=== PATIENT | male | born 1995 | race African-American/Black ===

== ENCOUNTER 2017-12-19 07:50 | Emergency (ER) | payer OTHER ==
[~2017-12-19] VITALS: Ht 188 cm; Wt 113.4 kg
[2017-12-19 08:06] VITALS: BP 154/87
[2017-12-19] MEDS ORDERED: Morphine Sulfate 4mg/ml Inj IVP ONE (08:15)
[2017-12-19 08:45] LABS: HEMATOCRIT 49.9 % (42.0-52.0); HEMOGLOBIN 17.1 G/DL (14.2-18.0); MEAN CORPUSCULAR VOLUME 86 FL (80-99); PLATELET COUNT 258 K/UL (150-450); RED BLOOD COUNT 5.78 M/UL (4.70-6.10); RED CELL DISTRIBUTION WIDTH 11.4 % (11.6-14.8); WHITE BLOOD COUNT 9.8 K/UL (4.8-10.8)
[2017-12-19 09:03] LABS: ANION GAP 7 mmol/L (5-15); BLOOD UREA NITROGEN 11 mg/dL (7-18); CALCIUM 10.9 MG/DL (8.5-10.1); CARBON DIOXIDE 31 MMOL/L (21-32); CHLORIDE 99 MMOL/L (98-107); CREATININE 1.1 MG/DL (0.55-1.30); POTASSIUM 3.7 MMOL/L (3.5-5.1); SODIUM 137 MMOL/L (136-145)
[2017-12-19 09:07] LABS: ALANINE AMINOTRANSFERASE 45 U/L (12-78); ALBUMIN 5.4 G/DL (3.4-5.0); ALBUMIN/GLOBULIN RATIO 1.4 (1.0-2.7); ALKALINE PHOSPHATASE 42 U/L (46-116); ASPARTATE AMINO TRANSFERASE 33 U/L (15-37); BILIRUBIN,TOTAL 0.6 MG/DL (0.2-1.0)
--- NOTE | 2017-12-19 09:21 | Emergency Room Report ---
History of Present Illness General Chief Complaint: Abdominal Pain Source: Patient Present Illness HPI 22-year-old male presents ED for evaluation. Patient presented with abdominal pain and nausea and vomiting. Started last night. Ate seafood for dinner. Pain is epigastric, sharp, 8 out of 10, nonradiating. He notes multiple episodes of nausea and vomiting. Denies any diarrhea. Denies any fevers or chills. Denies chest pain or shortness of breath. Denies sick contacts or travel. No other aggravating or relieving factors. Denies any other associated symptoms Allergies: Coded Allergies: No Known Allergies (Unverified , 12/19/17) Patient History Past Medical History: none Past Surgical History: none Pertinent Family History: none Social History: Denies: smoking, alcohol use, drug use Immunizations: UTD Reviewed Nursing Documentation: PMH: Agreed, PSxH: Agreed Nursing Documentation-PMH Past Medical History: No Stated History Review of Systems All Other Systems: negative except mentioned in HPI Physical Exam Vital Signs Date Time Temp Pulse Resp B/P (MAP) Pulse Ox O2 Delivery O2 Flow Rate FiO2 12/19/17 07:59 98.0 78 18 154/87 95 Room Air 98.1 Sp02 EP Interpretation: reviewed, normal General Appearance: no apparent distress, alert, GCS 15, non-toxic Head: normocephalic, atraumatic Eyes: bilateral eye normal inspection, bilateral eye PERRL ENT: hearing grossly normal, normal pharynx, no angioedema, normal voice Neck: full range of motion, supple/symm/no masses Respiratory: chest non-tender, lungs clear, normal breath sounds, speaking full sentences Cardiovascular #1: regular rate, rhythm, no edema Cardiovascular #2: 2+ carotid (R), 2+ carotid (L), 2+ radial (R), 2+ radial (L) , 2+ dorsalis pedis (R), 2+ dorsalis pedis (L) Gastrointestinal: normal bowel sounds, soft, non-distended, no guarding, no rebound, tenderness Rectal: deferred Genitourinary: normal inspection, no CVA tenderness Musculoskeletal: back normal, gait/station normal, normal range of motion, non- tender Neurologic: alert, oriented x3, responsive, motor strength/tone normal, sensory intact, speech normal Psychiatric: judgement/insight normal, memory normal, mood/affect normal, no suicidal/homicidal ideation Reflexes: 3+ bicep (R), 3+ bicep (L), 3+ tricep (R), 3+ tricep (L), 3+ knee (R) , 3+ knee (L) Skin: normal color, no rash, warm/dry, well hydrated Lymphatic: no adenopathy Medical Decision Making Diagnostic Impression: Primary Impression: Gastritis Qualified Codes: K29.00 - Acute gastritis without bleeding ER Course Hospital Course 22-year-old M presents to ED with epigastric pain with N/V. differential diagnosis: gastritis, SBO, cholecystits Clinical course Patient placed on stretcher. On cardiac care nurse. After initial history and physical I ordered labs, IV fluids, Zofran and pepcpid Labs - no leukocytosis, no electrolyte abnormalities, LFTs normal, UA unremarkable Upon reassessment, patient states pain has improved. findings consistent with gastritis. Discussed findings with patient I feel this is a highly complex case requiring extensive working including EKG/ Rhythm strip, Xray/CT/US, Blood/urine lab work, repeat exams while in ED, and administration of strong opiates/narcotics for pain control, admission to hospital or close patient follow up. Diagnosis - gastritis Stable and discharged to home with prescriptions for Zantac, zofran, bentyl. Followup with PMD. Return to ED if symptoms recur or worsen Labs Test 12/19/17 08:33 White Blood Count 9.8 K/UL (4.8-10.8) Red Blood Count 5.78 M/UL (4.70-6.10) Hemoglobin 17.1 G/DL (14.2-18.0) Hematocrit 49.9 % (42.0-52.0) Mean Corpuscular Volume 86 FL (80-99) Mean Corpuscular Hemoglobin 29.6 PG (27.0-31.0) Mean Corpuscular Hemoglobin Concent 34.4 G/DL (32.0-36.0) Red Cell Distribution Width 11.4 % (11.6-14.8) Platelet Count 258 K/UL (150-450) Mean Platelet Volume 8.3 FL (6.5-10.1) Neutrophils (%) (Auto) % (45.0-75.0) Lymphocytes (%) (Auto) % (20.0-45.0) Monocytes (%) (Auto) % (1.0-10.0) Eosinophils (%) (Auto) % (0.0-3.0) Basophils (%) (Auto) % (0.0-2.0) Differential Total Cells Counted 100 Neutrophils % (Manual) 85 % (45-75) Lymphocytes % (Manual) 11 % (20-45) Monocytes % (Manual) 4 % (1-10) Eosinophils % (Manual) 0 % (0-3) Basophils % (Manual) 0 % (0-2) Band Neutrophils 0 % (0-8) Platelet Estimate Adequate Platelet Morphology Normal Red Blood Cell Morphology Normal Sodium Level 137 MMOL/L (136-145) Potassium Level 3.7 MMOL/L (3.5-5.1) Chloride Level 99 MMOL/L (98-107) Carbon Dioxide Level 31 MMOL/L (21-32) Anion Gap 7 mmol/L (5-15) Blood Urea Nitrogen 11 mg/dL (7-18) Creatinine 1.1 MG/DL (0.55-1.30) Estimat Glomerular Filtration Rate > 60 mL/min (>60) Glucose Level 149 MG/DL (74-106) Calcium Level 10.9 MG/DL (8.5-10.1) Total Bilirubin 0.6 MG/DL (0.2-1.0) Aspartate Amino Transf (AST/SGOT) 33 U/L (15-37) Alanine Aminotransferase (ALT/SGPT) 45 U/L (12-78) Alkaline Phosphatase 42 U/L (46-116) Total Protein 9.4 G/DL (6.4-8.2) Albumin 5.4 G/DL (3.4-5.0) Globulin 4.0 g/dL Albumin/Globulin Ratio 1.4 (1.0-2.7) Lipase 92 U/L (73-393) Last Vital Signs Date Time Temp Pulse Resp B/P (MAP) Pulse Ox O2 Delivery O2 Flow Rate FiO2 12/19/17 08:31 98.1 12/19/17 08:06 18 154/87 95 Room Air 12/19/17 07:59 78 Status: improved Disposition: HOME, SELF-CARE Condition: Stable Scripts Dicyclomine Hcl* (BENTYL*) 10 Mg Capsule 10 MG ORAL FOUR TIMES A DAY, #20 CAP Prov: CATHIE MEHTA M.D. 12/19/17 Ranitidine Hcl* (ZANTAC*) 150 Mg Tablet 150 MG ORAL TWICE A DAY, #30 TAB Prov: CATHIE MEHTA M.D. 12/19/17 Ondansetron Odt* (ZOFRAN ODT*) 4 Mg Tab.rapdis 4 MG ORAL Q6H Y for Nausea & Vomiting, #30 TAB 0 Refills Prov: CATHIE MEHTA M.D. 12/19/17 Referrals: [facility] (PCP) CATHIE MEHTA M.D. Dec 19, 2017 09:21
[2017-12-19 09:26] VITALS: BP 119/76
[2017-12-19] MEDS ORDERED: RANITIDINE HCL150 MG ORAL (09:26)
[2017-12-19] MEDS ORDERED: ZOFRAN ODT4 MG ORAL (09:26)
[2017-12-19] MEDS ORDERED: BENTYL10 MG ORAL (09:26)
== END 2017-12-19 09:48 | disposition home or self-care (01) ==
LOC: EMR 08:24
DX: K29.70 Gastritis, unspecified, without bleeding (principal)
CPT/HCPCS: 36415; 80053; 83690; 85007; 85025; 96374; 96375; 99284; J2270; J2405; S0028

== ENCOUNTER 2018-01-23 04:01 | Emergency (ER) | payer OTHER ==
[~2018-01-23] VITALS: Ht 188 cm; Wt 108.9 kg
[~2018-01-23 04:01] MED LIST: BENTYL10 MG ORAL; RANITIDINE HCL150 MG ORAL; ZOFRAN ODT4 MG ORAL
[2018-01-23 04:32] VITALS: BP 120/76
[2018-01-23] MEDS ORDERED: PREDNISONE20 MG ORAL (04:35)
--- NOTE | 2018-01-23 04:35 | Emergency Room Report ---
History of Present Illness General Chief Complaint: Sore Throat Source: Patient Present Illness HPI Is a 22-year-old male with history of asthma. He woke up with chief complaint of sore throat and shortness of breath. He said is wheezing earlier today and took his inhaler with resolved. No nausea no vomiting. No chest pain. No coughing. Onset was only 3 hours ago. Allergies: Coded Allergies: No Known Allergies (Unverified , 12/19/17) Patient History Past Medical History: see triage record, old chart reviewed, asthma Past Surgical History: none Pertinent Family History: none Social History: Denies: smoking Immunizations: UTD Reviewed Nursing Documentation: PMH: Agreed; PSxH: Agreed Nursing Documentation-PMH Past Medical History: No History, Except For Hx Asthma: Yes Review of Systems Eye: Denies: eye pain, blurred vision ENT: Reports: throat pain; Denies: ear pain, nose congestion, throat swelling Respiratory: Reports: shortness of breath; Denies: cough Cardiovascular: Denies: chest pain, palpitations Gastrointestinal: Denies: abdominal pain, diarrhea, nausea, vomiting Musculoskeletal: Denies: back pain, joint pain Skin: Denies: rash Neurological: Denies: headache, numbness Endocrine: Denies: increased thirst, increased urine Hematologic/Lymphatic: Denies: easy bruising All Other Systems: negative except mentioned in HPI Physical Exam Vital Signs Date Time Temp Pulse Resp B/P (MAP) Pulse Ox O2 Delivery O2 Flow Rate FiO2 01/23/18 04:23 98.0 60 18 120/76 96 Room Air 98.1 vitals normal Sp02 EP Interpretation: reviewed, normal General Appearance: well appearing, no apparent distress, alert Head: normocephalic, atraumatic Eyes: bilateral eye PERRL, bilateral eye EOMI ENT: hearing grossly normal, normal pharynx, uvula midline - mild edema Neck: full range of motion, supple, no meningismus Respiratory: chest non-tender, lungs clear, normal breath sounds Cardiovascular #1: regular rate, rhythm, no murmur Gastrointestinal: normal bowel sounds, non tender, no mass, no organomegaly, no bruit, non-distended Musculoskeletal: back normal, gait/station normal, normal range of motion Psychiatric: mood/affect normal Skin: warm/dry Medical Decision Making Diagnostic Impression: Primary Impression: Pharyngitis Qualified Codes: J02.9 - Acute pharyngitis, unspecified ER Course Patient presents with sore throat. This is most likely viral in nature. No evidence of peritonsillar abscess, retropharyngeal abscess, strep throat or other bacterial infection. Last Vital Signs Date Time Temp Pulse Resp B/P (MAP) Pulse Ox O2 Delivery O2 Flow Rate FiO2 01/23/18 04:23 98.0 60 18 120/76 96 Room Air 98.1 Status: improved Disposition: HOME, SELF-CARE Condition: Stable Scripts Prednisone* (PREDNISONE*) 20 Mg Tablet 60 MG ORAL DAILY, #15 TAB Prov: ADRIANA DUEÑAS M.D. 01/23/18 Patient Instructions: Sore Throat Additional Instructions: Follow-up with your doctor in 7 days. Salt water gargle. Increase fluid. If still having wheezing or coughing take prednisone. Return if worse. ADRIANA DUEÑAS M.D. Jan 23, 2018 04:35
== END 2018-01-23 04:39 | disposition home or self-care (01) ==
LOC: EMR 04:35
DX: J02.9 Acute pharyngitis, unspecified (principal); J45.909 Unspecified asthma, uncomplicated
CPT/HCPCS: 99283

== ENCOUNTER 2018-01-29 19:54 | Emergency (ER) | payer OTHER ==
[~2018-01-29] VITALS: Ht 188 cm; Wt 108.9 kg
[~2018-01-29 19:54] MED LIST changes: +PREDNISONE20 MG ORAL
[2018-01-29] MEDS ORDERED: Pantoprazole Inj IVP ONE (20:45)
[2018-01-29 21:16] LABS: BASOPHILS % (AUTO) 3.1 % (0.0-2.0); EOSINOPHILS % (AUTO) 0.1 % (0.0-3.0); HEMATOCRIT 45.8 % (42.0-52.0); HEMOGLOBIN 15.8 G/DL (14.2-18.0); LYMPHOCYTES % (AUTO) 13.6 % (20.0-45.0); MEAN CORPUSCULAR VOLUME 86 FL (80-99); MONOCYTES % (AUTO) 6.4 % (1.0-10.0); NEUTROPHILS % (AUTO) 76.8 % (45.0-75.0); PLATELET COUNT 230 K/UL (150-450); RED BLOOD COUNT 5.33 M/UL (4.70-6.10); RED CELL DISTRIBUTION WIDTH 11.4 % (11.6-14.8); WHITE BLOOD COUNT 10.4 K/UL (4.8-10.8)
[2018-01-29 21:17] LABS: APPEARANCE,URINE CLEAR; BILIRUBIN, URINE NEGATIVE (NEGATIVE); GLUCOSE, URINE (UA) NEGATIVE (NEGATIVE); KETONES,URINE 4+ (NEGATIVE); LEUKOCYTE ESTERASE ,URINE 1+ (NEGATIVE); NITRITE,URINE NEGATIVE (NEGATIVE); PH,URINE 6 (4.5-8.0); PROTEIN,URINE 3+ (NEGATIVE); UROBILINOGEN,URINE 1 MG/DL (0.0-1.0)
[2018-01-29 21:18] LABS: COLOR,URINE YELLOW
[2018-01-29 21:19] LABS: ANION GAP 10 mmol/L (5-15); BLOOD UREA NITROGEN 19 mg/dL (7-18); CALCIUM 10.3 MG/DL (8.5-10.1); CARBON DIOXIDE 30 MMOL/L (21-32); CHLORIDE 101 MMOL/L (98-107); CREATININE 1.2 MG/DL (0.55-1.30); POTASSIUM 3.4 MMOL/L (3.5-5.1); SODIUM 141 MMOL/L (136-145)
[2018-01-29 21:24] LABS: ALANINE AMINOTRANSFERASE 43 U/L (12-78); ALBUMIN 5.4 G/DL (3.4-5.0); ALBUMIN/GLOBULIN RATIO 1.5 (1.0-2.7); ALKALINE PHOSPHATASE 40 U/L (46-116); ASPARTATE AMINO TRANSFERASE 47 U/L (15-37); BILIRUBIN,TOTAL 0.6 MG/DL (0.2-1.0)
--- NOTE | 2018-01-29 21:46 | Emergency Room Report ---
History of Present Illness General Chief Complaint: Abdominal Pain Source: Patient Present Illness HPI 22YOM with acute epigastric pain earlier today After eating spicy wings last night No associated vomiting, diarrhea, fever chills As history of gastritis, was seen here and treated previously Patient states she used up all the medications given here previously for gastritis Did not see GI for endoscopy in the interim No urinary complaints Allergies: Coded Allergies: No Known Allergies (Unverified , 12/19/17) Patient History Past Medical History: other - GERD Past Surgical History: none Pertinent Family History: none Social History: Denies: smoking, alcohol use, drug use Immunizations: UTD Reviewed Nursing Documentation: PMH: Agreed; PSxH: Agreed Nursing Documentation-PMH Past Medical History: No History, Except For Hx Asthma: Yes Review of Systems All Other Systems: negative except mentioned in HPI Physical Exam Vital Signs Date Time Temp Pulse Resp B/P (MAP) Pulse Ox O2 Delivery O2 Flow Rate FiO2 01/29/18 20:18 98.7 99 18 124/71 95 Room Air 98.8 Sp02 EP Interpretation: reviewed, normal General Appearance: normal inspection, well appearing, no apparent distress, alert, GCS 15, non-toxic Head: normocephalic, atraumatic Eyes: bilateral eye PERRL, bilateral eye EOMI ENT: normal ENT inspection, hearing grossly normal, normal pharynx, no angioedema, normal voice, TMs + canals normal, uvula midline, moist mucus membranes Neck: normal inspection, full range of motion, supple, thyroid normal, no meningismus, no bony tend Respiratory: normal inspection, lungs clear, normal breath sounds, no rhonchi, no respiratory distress, no retraction, no accessory muscle use, no wheezing, speaking full sentences Cardiovascular #1: regular rate, rhythm, no edema, no JVD, normal capillary refill Gastrointestinal: normal inspection, normal bowel sounds, soft, no mass, no peritonitis, non-distended, no guarding, no hernia, no pulsatile mass, other - mild epigastric ttp Genitourinary: no CVA tenderness Musculoskeletal: normal inspection, back normal, normal range of motion, no calf tenderness, pelvis stable, Randy's Sign negative Neurologic: normal inspection, alert, oriented x3, responsive, cst III-XII nml as tested, motor strength/tone normal, cerebellar normal, normal gait, speech normal Psychiatric: normal inspection, judgement/insight normal, mood/affect normal, no suicidal/homicidal ideation, no delusions Skin: normal inspection, normal color, no rash Lymphatic: normal inspection, no adenopathy Medical Decision Making Diagnostic Impression: Primary Impression: Epigastric pain Additional Impression: Gastritis Qualified Codes: K29.00 - Acute gastritis without bleeding ER Course VSS, afebrile Labs unremarkable Acute on chronic gastritis likely d/t dietary indiscretion Improved with IV pepcid, protonix DC with same GI followup for endoscopy Last Vital Signs Date Time Temp Pulse Resp B/P (MAP) Pulse Ox O2 Delivery O2 Flow Rate FiO2 01/29/18 20:18 98.7 99 18 124/71 95 Room Air 98.8 Status: improved Disposition: HOME, SELF-CARE Referrals: [facility] (PCP) STEPHEN CARNEY M.D. Jan 29, 2018 21:46
[2018-01-29] MEDS ORDERED: OMEPRAZOLE40 M1 ORAL (21:47)
[2018-01-29 22:03] VITALS: BP 124/71
== END 2018-01-29 22:04 | disposition home or self-care (01) ==
LOC: EMR 20:33
DX: K29.70 Gastritis, unspecified, without bleeding (principal); J45.909 Unspecified asthma, uncomplicated
CPT/HCPCS: 36415; 80053; 81003; 83690; 85025; 87086; 96374; 96375; 99284; C9113; J2405; S0028

== ENCOUNTER 2018-01-31 16:45 | Emergency (ER) | payer OTHER ==
[~2018-01-31] VITALS: Ht 188 cm; Wt 108.9 kg
[~2018-01-31 16:45] MED LIST changes: +OMEPRAZOLE40 M1 ORAL
[2018-01-31] MEDS ORDERED: ALBUTEROL2.5 MG/3 M INH (17:29)
[2018-01-31] MEDS ORDERED: Morphine Sulfate 4mg/ml Inj IVP ONE (17:45)
[2018-01-31 18:19] LABS: BASOPHILS % (AUTO) 3.1 % (0.0-2.0); EOSINOPHILS % (AUTO) 0.9 % (0.0-3.0); HEMATOCRIT 46.2 % (42.0-52.0); LYMPHOCYTES % (AUTO) 22.2 % (20.0-45.0); MEAN CORPUSCULAR VOLUME 84 FL (80-99); MONOCYTES % (AUTO) 5.9 % (1.0-10.0); NEUTROPHILS % (AUTO) 67.9 % (45.0-75.0); PLATELET COUNT 263 K/UL (150-450); RED BLOOD COUNT 5.47 M/UL (4.70-6.10); RED CELL DISTRIBUTION WIDTH 10.9 % (11.6-14.8); WHITE BLOOD COUNT 7.8 K/UL (4.8-10.8)
[2018-01-31 18:40] LABS: ANION GAP 14 mmol/L (5-15); BLOOD UREA NITROGEN 15 mg/dL (7-18); CALCIUM 10.6 MG/DL (8.5-10.1); CARBON DIOXIDE 26 MMOL/L (21-32); CHLORIDE 100 MMOL/L (98-107); CREATININE 1.2 MG/DL (0.55-1.30); POTASSIUM 3.4 MMOL/L (3.5-5.1); SODIUM 140 MMOL/L (136-145)
[2018-01-31 18:45] LABS: ALANINE AMINOTRANSFERASE 52 U/L (12-78); ALBUMIN 5.5 G/DL (3.4-5.0); ALBUMIN/GLOBULIN RATIO 1.4 (1.0-2.7); ALKALINE PHOSPHATASE 40 U/L (46-116); ASPARTATE AMINO TRANSFERASE 57 U/L (15-37); BILIRUBIN,TOTAL 0.7 MG/DL (0.2-1.0)
--- NOTE | 2018-01-31 19:05 | Emergency Room Report ---
History of Present Illness General Chief Complaint: Vomiting Source: Patient Present Illness HPI 22-year-old male presents ED for evaluation. patient c/o abdominal pain with nausea and vomiting. Started this morning. Patient states pain is cramping, epigastric, 9 out of 10, nonradiating. Notes history of gastritis. States he was here 2 days ago with similar pain. Was treated and subsequently discharged. States the medications are not helping. Denies chest pain or shortness of breath. Denies fevers or chills. No other aggravating or relieving factors. Denies any other associated symptoms Allergies: Coded Allergies: No Known Allergies (Unverified , 12/19/17) Patient History Past Medical History: asthma Past Surgical History: none Pertinent Family History: none Social History: Denies: smoking, alcohol use, drug use Immunizations: UTD Reviewed Nursing Documentation: PMH: Agreed; PSxH: Agreed Nursing Documentation-PMH Hx Asthma: Yes Review of Systems All Other Systems: negative except mentioned in HPI Physical Exam Vital Signs Date Time Temp Pulse Resp B/P (MAP) Pulse Ox O2 Delivery O2 Flow Rate FiO2 01/31/18 17:26 98.5 92 19 150/86 97 Room Air 98.4 Sp02 EP Interpretation: reviewed, normal General Appearance: no apparent distress, alert, GCS 15, non-toxic Head: normocephalic, atraumatic Eyes: bilateral eye normal inspection, bilateral eye PERRL ENT: hearing grossly normal, normal pharynx, no angioedema, normal voice Neck: full range of motion, supple/symm/no masses Respiratory: chest non-tender, lungs clear, normal breath sounds, speaking full sentences Cardiovascular #1: regular rate, rhythm, no edema Cardiovascular #2: 2+ carotid (R), 2+ carotid (L), 2+ radial (R), 2+ radial (L) , 2+ dorsalis pedis (R), 2+ dorsalis pedis (L) Gastrointestinal: normal bowel sounds, soft, non-distended, no guarding, no rebound, tenderness - epigastric Rectal: deferred Genitourinary: normal inspection, no CVA tenderness Musculoskeletal: back normal, gait/station normal, normal range of motion, non- tender Neurologic: alert, oriented x3, responsive, motor strength/tone normal, sensory intact, speech normal Psychiatric: judgement/insight normal, memory normal, mood/affect normal, no suicidal/homicidal ideation Reflexes: 3+ bicep (R), 3+ bicep (L), 3+ tricep (R), 3+ tricep (L), 3+ knee (R) , 3+ knee (L) Skin: normal color, no rash, warm/dry, well hydrated Lymphatic: no adenopathy Medical Decision Making Diagnostic Impression: Primary Impression: Gastritis Qualified Codes: K29.00 - Acute gastritis without bleeding ER Course Hospital Course 22-year-old M presents to ED with epigastric pain with N/V. patient here 2 days ago with similar presentation differential diagnosis: gastritis, SBO, cholecystits Clinical course Patient placed on stretcher. On cardiac technician. After initial history and physical I ordered labs, IV fluids, Zofran and Zantac Labs - no leukocytosis, no electrolyte abnormalities, LFTs normal, UA unremarkable CT shows no acute process Upon reassessment, patient states pain has improved. discussed findings with patient. findings consistent with gastritis I feel this is a highly complex case requiring extensive working including EKG/ Rhythm strip, Xray/CT/US, Blood/urine lab work, repeat exams while in ED, and administration of strong opiates/narcotics for pain control, admission to hospital or close patient follow up. Diagnosis - gastritis Stable and discharged to home with prescriptions for Zantac, zofran. Followup with PMD. Return to ED if symptoms recur or worsen Labs Test 01/31/18 17:48 White Blood Count 7.8 K/UL (4.8-10.8) Red Blood Count 5.47 M/UL (4.70-6.10) Hemoglobin 16.0 G/DL (14.2-18.0) Hematocrit 46.2 % (42.0-52.0) Mean Corpuscular Volume 84 FL (80-99) Mean Corpuscular Hemoglobin 29.3 PG (27.0-31.0) Mean Corpuscular Hemoglobin Concent 34.7 G/DL (32.0-36.0) Red Cell Distribution Width 10.9 % (11.6-14.8) Platelet Count 263 K/UL (150-450) Mean Platelet Volume 7.7 FL (6.5-10.1) Neutrophils (%) (Auto) 67.9 % (45.0-75.0) Lymphocytes (%) (Auto) 22.2 % (20.0-45.0) Monocytes (%) (Auto) 5.9 % (1.0-10.0) Eosinophils (%) (Auto) 0.9 % (0.0-3.0) Basophils (%) (Auto) 3.1 % (0.0-2.0) Sodium Level 140 MMOL/L (136-145) Potassium Level 3.4 MMOL/L (3.5-5.1) Chloride Level 100 MMOL/L (98-107) Carbon Dioxide Level 26 MMOL/L (21-32) Anion Gap 14 mmol/L (5-15) Blood Urea Nitrogen 15 mg/dL (7-18) Creatinine 1.2 MG/DL (0.55-1.30) Estimat Glomerular Filtration Rate > 60 mL/min (>60) Glucose Level 109 MG/DL (74-106) Calcium Level 10.6 MG/DL (8.5-10.1) Total Bilirubin 0.7 MG/DL (0.2-1.0) Aspartate Amino Transf (AST/SGOT) 57 U/L (15-37) Alanine Aminotransferase (ALT/SGPT) 52 U/L (12-78) Alkaline Phosphatase 40 U/L (46-116) Total Protein 9.3 G/DL (6.4-8.2) Albumin 5.5 G/DL (3.4-5.0) Globulin 3.8 g/dL Albumin/Globulin Ratio 1.4 (1.0-2.7) Lipase 74 U/L (73-393) CT/MRI/US Diagnostic Results CT/MRI/US Diagnostic Results : Imaging Test Ordered: CT A/P Impression no acute process Last Vital Signs Date Time Temp Pulse Resp B/P (MAP) Pulse Ox O2 Delivery O2 Flow Rate FiO2 01/31/18 17:50 98.5 01/31/18 17:26 92 19 150/86 97 Room Air Status: improved Disposition: HOME, SELF-CARE Condition: Stable Scripts Dicyclomine Hcl* (DICYCLOMINE HCL*) 10 Mg Capsule 10 MG PO QID, #20 CAP Prov: Chaz Cool MD 01/31/18 Ondansetron Odt* (ZOFRAN ODT*) 4 Mg Tab.rapdis 4 MG ORAL Q6H PRN for Nausea & Vomiting, #30 TAB 0 Refills Prov: Chaz Cool MD 01/31/18 Ranitidine Hcl* (ZANTAC*) 150 Mg Tablet 150 MG ORAL TWICE A DAY, #30 TAB Prov: Chaz Cool MD 01/31/18 Referrals: [facility] (PCP) Chaz Cool MD Jan 31, 2018 19:05
[2018-01-31] MEDS ORDERED: RANITIDINE HCL150 MG ORAL (20:05)
[2018-01-31] MEDS ORDERED: ZOFRAN ODT4 MG ORAL (20:05)
[2018-01-31] MEDS ORDERED: DICYCLOMINE HCL10 MG PO (20:05)
[2018-01-31 20:21] VITALS: BP 130/81
[2018-01-31 20:29] LABS: APPEARANCE,URINE CLEAR; BILIRUBIN, URINE NEGATIVE (NEGATIVE); GLUCOSE, URINE (UA) NEGATIVE (NEGATIVE); KETONES,URINE 4+ (NEGATIVE); LEUKOCYTE ESTERASE ,URINE 1+ (NEGATIVE); NITRITE,URINE NEGATIVE (NEGATIVE); PH,URINE 6.5 (4.5-8.0); PROTEIN,URINE 2+ (NEGATIVE); UROBILINOGEN,URINE 1 MG/DL (0.0-1.0)
[2018-01-31 20:31] LABS: COLOR,URINE YELLOW
--- NOTE | 2018-02-01 09:23 | Diagnostic Imaging Report ---
Indication: Abdominal pain Technique: CT of the abdomen and pelvis utilizing automated exposure control with intravenous contrast. Venous scanning performed. CT dose: Total DLP 993.53 mGycm; CTDI vol 17.93 mGy Comparison: None Findings: Lung bases are clear. Heart size is within normal limits. No appreciable focal pericardial effusion. Liver, gallbladder, spleen, adrenal glands and pancreas are unremarkable in appearance. Kidneys are symmetric in size and enhance symmetrically. No urinary tract stone or hydronephrosis bilaterally. Bladder and prostate are unremarkable. No evidence of free intraperitoneal air. No ascites. No evidence of bowel obstruction. Appendix is normal. No appreciable focal or diffuse abnormal bowel wall thickening however evaluation limited without the use of oral contrast. Abdominal aorta normal in caliber. There is no pathologically enlarged lymphadenopathy. No acute osseous abnormality seen. IMPRESSION: No evidence of acute intra-abdominal pathology. Appendix is normal. This corresponds with the statrad preliminary report. The CT scanner at [facility] is accredited by the [employer] and the scans are performed using protocols designed to limit radiation exposure to as low as reasonably achievable to attain images of sufficient resolution adequate for diagnostic evaluation.
== END 2018-01-31 20:21 | disposition home or self-care (01) ==
LOC: EMR 18:24
DX: K29.70 Gastritis, unspecified, without bleeding (principal); J45.909 Unspecified asthma, uncomplicated
CPT/HCPCS: 36415; 74177; 80053; 81003; 83690; 85025; 96374; 96375; 99284; J2270; J2405; Q9967; S0028

== ENCOUNTER 2018-02-16 10:10 | Emergency (ER) | payer OTHER ==
[~2018-02-16] VITALS: Ht 190.5 cm; Wt 108.9 kg
[~2018-02-16 10:10] MED LIST changes: +ALBUTEROL2.5 MG/3 M INH; +DICYCLOMINE HCL10 MG PO
[2018-02-16 10:28] VITALS: BP 135/87
[2018-02-16] MEDS ORDERED: Sodium Chloride 500ML 500 ML IV ONE (10:30)
[2018-02-16] MEDS ORDERED: Albuterol ud Inhalation HHN ONE (10:30)
[2018-02-16] MEDS ORDERED: Ipratropium 0.02% Inh Soln 2.5ml UD HHN ONE (10:30)
[2018-02-16 10:52] LABS: BASOPHILS % (AUTO) 4.4 % (0.0-2.0); EOSINOPHILS % (AUTO) 5.5 % (0.0-3.0); HEMATOCRIT 42.7 % (42.0-52.0); HEMOGLOBIN 14.7 G/DL (14.2-18.0); MEAN CORPUSCULAR VOLUME 85 FL (80-99); MONOCYTES % (AUTO) 14.1 % (1.0-10.0); NEUTROPHILS % (AUTO) 63.9 % (45.0-75.0); PLATELET COUNT 188 K/UL (150-450); RED CELL DISTRIBUTION WIDTH 11.6 % (11.6-14.8)
[2018-02-16 10:59] LABS: ANION GAP 11 mmol/L (5-15); BLOOD UREA NITROGEN 12 mg/dL (7-18); CALCIUM 9.8 MG/DL (8.5-10.1); CARBON DIOXIDE 27 MMOL/L (21-32); CHLORIDE 102 MMOL/L (98-107); POTASSIUM 3.9 MMOL/L (3.5-5.1); SODIUM 140 MMOL/L (136-145)
[2018-02-16 11:03] LABS: ALANINE AMINOTRANSFERASE 32 U/L (12-78); ALBUMIN 4.3 G/DL (3.4-5.0); ALBUMIN/GLOBULIN RATIO 1.2 (1.0-2.7); ALKALINE PHOSPHATASE 28 U/L (46-116); ASPARTATE AMINO TRANSFERASE 17 U/L (15-37); BILIRUBIN,TOTAL 0.3 MG/DL (0.2-1.0)
--- NOTE | 2018-02-16 11:33 | Emergency Room Report ---
History of Present Illness General Chief Complaint: Chest Pain Source: Patient Present Illness HPI 22-year-old male presents ED complaining of chest pain. Started yesterday. Also noting a runny nose and congestion and cough. Feels his chest feels tight. History of asthma. Cough is dry. Denies fevers or chills. Denies sick contacts or recent travel area. States that last week and it rained and he did not wear a jacket. Symptoms started shortly thereafter. Denies alcohol or drug use. No other aggravating relieving factors. Denies any other associated symptoms Allergies: Coded Allergies: No Known Allergies (Unverified , 12/19/17) Patient History Past Medical History: asthma, GERD Past Surgical History: none Pertinent Family History: none Social History: Denies: smoking, alcohol use, drug use Immunizations: UTD Reviewed Nursing Documentation: PMH: Agreed; PSxH: Agreed Nursing Documentation-PMH Past Medical History: No History, Except For Hx Asthma: Yes Review of Systems All Other Systems: negative except mentioned in HPI Physical Exam Vital Signs Date Time Temp Pulse Resp B/P (MAP) Pulse Ox O2 Delivery O2 Flow Rate FiO2 02/16/18 10:23 98.9 66 17 135/87 100 Room Air 99.0 02/16/18 10:38 21 Sp02 EP Interpretation: reviewed, normal General Appearance: no apparent distress, alert, GCS 15, non-toxic Head: normocephalic, atraumatic Eyes: bilateral eye normal inspection, bilateral eye PERRL ENT: hearing grossly normal, normal pharynx, no angioedema, normal voice Neck: full range of motion, supple/symm/no masses Respiratory: chest non-tender, lungs clear, normal breath sounds, speaking full sentences Cardiovascular #1: regular rate, rhythm, no edema Cardiovascular #2: 2+ carotid (R), 2+ carotid (L), 2+ radial (R), 2+ radial (L) , 2+ dorsalis pedis (R), 2+ dorsalis pedis (L) Gastrointestinal: normal bowel sounds, non tender, soft, non-distended, no guarding, no rebound Rectal: deferred Genitourinary: normal inspection, no CVA tenderness Musculoskeletal: back normal, gait/station normal, normal range of motion, non- tender Neurologic: alert, oriented x3, responsive, motor strength/tone normal, sensory intact, speech normal Psychiatric: judgement/insight normal, memory normal, mood/affect normal, no suicidal/homicidal ideation Reflexes: 3+ bicep (R), 3+ bicep (L), 3+ tricep (R), 3+ tricep (L), 3+ knee (R) , 3+ knee (L) Skin: normal color, no rash, warm/dry, well hydrated Lymphatic: no adenopathy Medical Decision Making Diagnostic Impression: Primary Impression: Bronchitis ER Course Hospital Course 22-year-old male presents ED complaining of chest tightness, cough and congestion Differential diagnoses include: URI, bronchitis, asthma/COPD, pneumonia Clinical course Patient placed on stretcher. After initial history, physical exam reveals an male in no acute distress. Bilateral TM unremarkable. No pharyngeal erythema. No tonsillar exudates. No lymphadenopathy. wheezing I ordered labs, IV fluids, nebs, prednisone, ekg chest x-ray. Labs reviewed-no leukocytosis noted, hemoglobin/hematocrit stable, electrolytes okay, trop negative EKG - NSR, no acute ischemic changes interpretd by me Chest x-ray shows no acute infiltrate On reassessment patient states he feels better. Patient can be safely discharged to home with outpatient therapy. Patient agrees with plan. Diagnosis - bronchitis Stable and discharged home with prescriptions for prednisone, promethazine, albuterol. Instructed to followup with PMD. Return to ED if symptoms recur or worsen Labs Test 02/16/18 10:37 White Blood Count 5.0 K/UL (4.8-10.8) Red Blood Count 5.00 M/UL (4.70-6.10) Hemoglobin 14.7 G/DL (14.2-18.0) Hematocrit 42.7 % (42.0-52.0) Mean Corpuscular Volume 85 FL (80-99) Mean Corpuscular Hemoglobin 29.5 PG (27.0-31.0) Mean Corpuscular Hemoglobin Concent 34.5 G/DL (32.0-36.0) Red Cell Distribution Width 11.6 % (11.6-14.8) Platelet Count 188 K/UL (150-450) Mean Platelet Volume 7.9 FL (6.5-10.1) Neutrophils (%) (Auto) 63.9 % (45.0-75.0) Lymphocytes (%) (Auto) 12.0 % (20.0-45.0) Monocytes (%) (Auto) 14.1 % (1.0-10.0) Eosinophils (%) (Auto) 5.5 % (0.0-3.0) Basophils (%) (Auto) 4.4 % (0.0-2.0) Sodium Level 140 MMOL/L (136-145) Potassium Level 3.9 MMOL/L (3.5-5.1) Chloride Level 102 MMOL/L (98-107) Carbon Dioxide Level 27 MMOL/L (21-32) Anion Gap 11 mmol/L (5-15) Blood Urea Nitrogen 12 mg/dL (7-18) Creatinine 1.0 MG/DL (0.55-1.30) Estimat Glomerular Filtration Rate > 60 mL/min (>60) Glucose Level 105 MG/DL (74-106) Calcium Level 9.8 MG/DL (8.5-10.1) Total Bilirubin 0.3 MG/DL (0.2-1.0) Aspartate Amino Transf (AST/SGOT) 17 U/L (15-37) Alanine Aminotransferase (ALT/SGPT) 32 U/L (12-78) Alkaline Phosphatase 28 U/L (46-116) Troponin I 0.000 ng/mL (0.000-0.056) Total Protein 7.8 G/DL (6.4-8.2) Albumin 4.3 G/DL (3.4-5.0) Globulin 3.5 g/dL Albumin/Globulin Ratio 1.2 (1.0-2.7) EKG Diagnostic Results Rate: normal Rhythm: NSR ST Segments: no acute changes ASA given to the pt in ED: No Rhythm Strip Diag. Results EP Interpretation: yes Rhythm: NSR, no PVC's, no ectopy Chest X-Ray Diagnostic Results Chest X-Ray Diagnostic Results : Chest X-Ray Ordered: Yes # of Views/Limited/Complete: 1 View Indication: Chest Pain EP Interpretation: Yes Interpretation: no consolidation, no effusion, no pneumothorax, no acute cardiopulmonary disease Impression: No acute disease Electronically Signed by: Electronically signed by Chaz Cool MD Last Vital Signs Date Time Temp Pulse Resp B/P (MAP) Pulse Ox O2 Delivery O2 Flow Rate FiO2 02/16/18 11:11 77 19 100 Room Air 02/16/18 10:38 21 02/16/18 10:28 98.9 135/87 98.9 Status: improved Disposition: HOME, SELF-CARE Condition: Stable Scripts D-Methorphan Hb/Prometh Hcl* (PROMETHAZINE-DM SYRUP*) 118 Ml Syrup 5 ML ORAL Q6H PRN for For Cough, #118 ML 0 Refills Prov: Chaz Cool MD 02/16/18 Prednisone* (PREDNISONE*) 20 Mg Tablet 40 MG ORAL DAILY, #10 TAB Prov: Chaz Cool MD 02/16/18 Albuterol Sulfate* (ALBUTEROL SULFATE MDI*) 8.5 Gm Hfa.aer.ad 2 PUFF INH Q6H, #1 EA 0 Refills Prov: Chaz Cool MD 02/16/18 Referrals: [facility],REFERRING (PCP) Chaz Cool MD February 16, 2018 11:33
[2018-02-16] MEDS ORDERED: PROMETHAZINE-D118 ML ORAL (11:46)
[2018-02-16] MEDS ORDERED: ALBUTEROL SULF8.5 GM INH (11:46)
[2018-02-16] MEDS ORDERED: PREDNISONE20 MG ORAL (11:46)
[2018-02-16 11:53] VITALS: BP 138/97
[2018-02-16] MEDS ORDERED: LORazepam Inj 2mg/ml 1ml ONE (13:08)
--- NOTE | 2018-02-17 11:46 | Cardiology Report ---
APPROVED REPORT EKG Measurement Heart [id number] Normal sinus rhythm with sinus arrhythmia Nonspecific T wave abnormality Abnormal ECG
--- NOTE | 2018-02-21 11:57 | Diagnostic Imaging Report ---
INDICATION: Shortness of breath COMPARISON: None FINDINGS: Single frontal view demonstrates a normal cardiomediastinal silhouette. The lungs are clear. No pleural effusions. The visualized osseous structures are within normal limits. IMPRESSION: No acute cardiopulmonary disease.
== END 2018-02-16 11:55 | disposition home or self-care (01) ==
LOC: EMR 10:27
DX: J45.909 Unspecified asthma, uncomplicated (principal); K21.9 Gastro-esophageal reflux disease without esophagitis
CPT/HCPCS: 36415; 71045; 80053; 84484; 85025; 93005; 94640; 94664; 96374; 99284; J7040; J7512

== ENCOUNTER 2018-02-26 11:51 | Emergency (ER) | payer OTHER ==
[~2018-02-26] VITALS: Ht 182.9 cm; Wt 111.1 kg
[~2018-02-26 11:51] MED LIST changes: +ALBUTEROL SULF8.5 GM INH; +PROMETHAZINE-D118 ML ORAL
--- NOTE | 2018-02-26 12:09 | Emergency Room Report ---
History of Present Illness General Chief Complaint: Upper Respiratory Illness Source: Patient, Medical Record Present Illness HPI 22 yo male patient presents to ER complaining of vomiting and diarrhea. denies blood in vomit or stool. patient reports no relief of symptoms with diet changes , has been seen by primary care provider for symptoms but has not been evaluated by GI specialist. . Patient was seen in ER 3 days ago for similar symptoms. Patient is also requesting refills of his medication for GERD. Patient denies fever, chest pain, shortness of breath. patient also complains of pain with urination. denies recent sexual activity. Denies hematuria.Patient reports that his been seen by his primary care provider, denies is seeing a urologist for her symptoms. also requesting cough medication , states that cough medication given him previously upsets his stomach, requesting new cough medication. Allergies: Coded Allergies: No Known Allergies (Unverified , 12/19/17) Patient History Past Medical History: see triage record Reviewed Nursing Documentation: PMH: Agreed; PSxH: Agreed Nursing Documentation-PMH Past Medical History: No History, Except For Hx Asthma: Yes Review of Systems All Other Systems: negative except mentioned in HPI Physical Exam Vital Signs Date Time Temp Pulse Resp B/P (MAP) Pulse Ox O2 Delivery O2 Flow Rate FiO2 02/26/18 11:54 98.1 73 18 133/83 95 Room Air 98.1 Sp02 EP Interpretation: reviewed, normal General Appearance: well appearing, no apparent distress, alert, GCS 15, non- toxic Head: normocephalic, atraumatic Eyes: bilateral eye normal inspection, bilateral eye PERRL ENT: hearing grossly normal, normal pharynx, no angioedema, normal voice, uvula midline, moist mucus membranes Neck: full range of motion Respiratory: lungs clear, normal breath sounds, no rhonchi, no respiratory distress, no accessory muscle use, no wheezing, speaking full sentences Cardiovascular #1: regular rate, rhythm, no edema Gastrointestinal: non tender, soft, no mass, non-distended, no guarding, no rebound Genitourinary: no CVA tenderness Musculoskeletal: back normal, digits/nails normal, gait/station normal, normal range of motion, non-tender Neurologic: alert, oriented x3, responsive, motor strength/tone normal, sensory intact Psychiatric: mood/affect normal Skin: no rash Lymphatic: no adenopathy Medical Decision Making PA Attestation Dr. Cool is my supervising Physician whom patient management has been discussed with. Diagnostic Impression: Primary Impression: Vomiting Additional Impressions: Diarrhea Encounter for medication refill Cough ER Course Pt. presents to the ED c/o vomiting and diarrhea and medication refill. Ddx considered but are not limited to viral syndrome, gastritis, enteritis, URI , UTI. low suspicion for pneumonia, does not need chest x-ray at this time, had imaging done previous visit, no fever, no wheezes, rhonchi, or rales. Vital signs: are WNL, pt. is afebrile at discharge. ORDERS: none required at this time, the diagnosis is clinical ED COURSE: PE benign: lungs clear to auscultation, no TTP on abdominal pain, does not require repeat labs or imaging at this time. Reviewed labs and imaging from previous visit. Patient informed of likely viral cause of symptoms. No fever, no blood in stool, no recent travel or hospitalizations, does not require abx treatment at this time. No signs of dehydration, moist mucus membranes. Patient reports eating and drinking normally. Provided with Zofran in ER. Will provide refill of GERD medications for patient, needs to follow with primary care provider in 2 weeks for further management. Follow up with GI specialist due to recurrence of symptoms. Food diary. informed patient ER cannot provide refills for medications in the future, follow -up with primary care provider. Stay hydrated. BRAT diet. Cough will persist for up to 2 weeks, continue to take medications as needed. CURES report negative, instructed patient will provide with promethazine with codeine. May cause drowsiness: do not drink, drive, or operate heavy machinery prior to use. UA results show no nitrites, no leukocyte esterase, low suspicion for UTI. Does not require abx at this time. Patient denies recent sexual contact, follow-up STI clinic for testing and treatment if concern for STI. Patient reports no concern for STI at this time. Followup with PCP and get referral to . Patient reports feeling better, OK for discharge to home. DISCHARGE: Rx provided for Ranitidine Rx provided for omeprazole Rx provided for promethazine with codeine Patient instructed on BRAT diet. Patient instructed to remain hydrated, drink plenty of fluids. Patient questions asked and answered. Patient states understanding and agreement to treatment plan. At this time pt. is stable for d/c to home. Patient is resting comfortably, laughing, in no acute distress, nontoxic appearing. Will provide printed patient care instructions, and any necessary prescriptions. Care plan and follow up instructions have been discussed with the patient prior to discharge. Patient instructed to followup with PCP in 3-5 days. Patient reports understanding and agreement to treatment plan. Patient questions asked and answered. ER precautions given; patient instructed to return to ER for new or worsening of symptoms including but not limited to fever, intractable vomiting, severe abdominal pain, blood in stool. - Please note that this Emergency Department Report was dictated using [employer] annealing machine setter technology software, occasionally this can lead to erroneous entry secondary to interpretation by the dictation equipment. Labs Test 02/26/18 12:30 Urine Color Pale yellow Urine Appearance Clear Urine pH 7 (4.5-8.0) Urine Specific [place] 1.010 (1.005-1.035) Urine Protein Negative (NEGATIVE) Urine Glucose (UA) Negative (NEGATIVE) Urine Ketones Negative (NEGATIVE) Urine Occult Blood Negative (NEGATIVE) Urine Nitrite Negative (NEGATIVE) Urine Bilirubin Negative (NEGATIVE) Urine Urobilinogen Normal MG/DL (0.0-1.0) Urine Leukocyte Esterase Negative (NEGATIVE) Urine RBC 0-2 /HPF (0 - 0) Urine WBC 0-2 /HPF (0 - 0) Urine Squamous Epithelial Cells Occasional /LPF Urine Bacteria Occasional /HPF (NONE) Last Vital Signs Date Time Temp Pulse Resp B/P (MAP) Pulse Ox O2 Delivery O2 Flow Rate FiO2 02/26/18 11:54 98.1 73 18 133/83 95 Room Air 98.1 Disposition: HOME, SELF-CARE Condition: Stable Scripts Codeine/Promethazine Hcl* (PROMETHAZINE-CODEINE SYRUP*) 118 Ml Syrup 5 ML ORAL Q6H PRN for For Cough, #118 ML 0 Refills Prov: Gavin Armijo 02/26/18 Omeprazole (OMEPRAZOLE) 40 Mg Capsule.dr 40 MG ORAL DAILY for 14 Days, #28 CAP Prov: Gavin Armijo 02/26/18 Ranitidine Hcl* (ZANTAC*) 150 Mg Tablet 150 MG ORAL TWICE A DAY for 14 Days, #28 TAB Prov: Gavin Armijo 02/26/18 Patient Instructions: Diarrhea, Adult, [id number], Food Choices for Gastroesophageal Reflux Disease, Adult, [id number], Nausea and Vomiting, Adult , [id number]-[id number] Additional Instructions: Followup with primary care provider in 3 -5 days. Discuss referral to GI and urology. Avoid spicy foods, avoid dairy foods. BRAT diet: bananas, rice, apple sauce, toast. Drink water stay hydrated. ERs will not refill of medications again in the future, follow-up with primary care provider, discuss referral to GI. Take medications as directed. Promethazine with codeine may cause drowsiness: do not drink, drive, or operate heavy machinery prior to use. Patient questions asked and answered. ER precautions given, patient instructed to return to ER immediately for any new or worsening of symptoms. Gavin Armijo February 26, 2018 12:09
[2018-02-26] MEDS ORDERED: GUAIFENESI100 MG/5 M ORAL (12:27)
[2018-02-26] MEDS ORDERED: OMEPRAZOLE40 M1 ORAL (12:27)
[2018-02-26] MEDS ORDERED: ZANTAC150 MG ORAL (12:27)
[2018-02-26 12:32] VITALS: BP 133/83
[2018-02-26] MEDS ORDERED: PROMETHAZINE-C118 M1 ORAL (12:38)
[2018-02-26 13:16] LABS: APPEARANCE,URINE CLEAR; BILIRUBIN, URINE NEGATIVE (NEGATIVE); COLOR,URINE PALE YELLOW; GLUCOSE, URINE (UA) NEGATIVE (NEGATIVE); KETONES,URINE NEGATIVE (NEGATIVE); LEUKOCYTE ESTERASE ,URINE NEGATIVE (NEGATIVE); NITRITE,URINE NEGATIVE (NEGATIVE); PH,URINE 7 (4.5-8.0); PROTEIN,URINE NEGATIVE (NEGATIVE); UROBILINOGEN,URINE NORMAL MG/DL (0.0-1.0)
[2018-02-26 14:14] VITALS: BP 133/83
== END 2018-02-26 14:15 | disposition home or self-care (01) ==
LOC: EMR 12:21
DX: R11.10 Vomiting, unspecified (principal); R19.7 Diarrhea, unspecified; R05 Cough; Z76.0 Encounter for issue of repeat prescription; J45.909 Unspecified asthma, uncomplicated
CPT/HCPCS: 81001; 99284

== ENCOUNTER 2018-07-09 12:34 | Emergency (ER) | payer OTHER ==
[~2018-07-09] VITALS: Ht 190.5 cm; Wt 86.2 kg
[~2018-07-09 12:34] MED LIST changes: +GUAIFENESI100 MG/5 M ORAL; +PROMETHAZINE-C118 M1 ORAL; +ZANTAC150 MG ORAL
[2018-07-09 12:50] VITALS: BP 122/74
[2018-07-09] MEDS ORDERED: Mylanta II UD 30ml ORAL ONE (13:00)
[2018-07-09] MEDS ORDERED: Dicyclomine HCl 10mg/5ml oral soln ORAL ONE (13:00)
[2018-07-09] MEDS ORDERED: Lidocaine 2% Visc 15ml soln ORAL ONE (13:00)
--- NOTE | 2018-07-09 13:22 | Emergency Room Report ---
History of Present Illness General Chief Complaint: Abdominal Pain Source: Patient Present Illness HPI 23-year-old male patient presents to ER complaining of vomiting for the past day. Reports history of gastritis, states that he has been eating normally and diet consistent with his gastritis symptoms. Denies eating spicy foods. Denies drinking alcohol. Reports has been able tolerate fluids orally. Denies hematemesis. Denies fever, chest pain, shortness of breath. denies hitting his head or loss consciousness. denies diarrhea. reports has previously seen PCP and GI specialist for symptoms. denies recent travel or diarrhea. Allergies: Coded Allergies: No Known Allergies (Unverified , 12/19/17) Patient History Past Medical History: see triage record Reviewed Nursing Documentation: PMH: Agreed; PSxH: Agreed Nursing Documentation-PMH Hx Asthma: Yes Review of Systems All Other Systems: negative except mentioned in HPI Physical Exam Vital Signs Date Time Temp Pulse Resp B/P (MAP) Pulse Ox O2 Delivery O2 Flow Rate FiO2 07/09/18 12:38 98.0 89 22 122/74 97 Room Air 98.1 Sp02 EP Interpretation: reviewed, normal General Appearance: well appearing, no apparent distress, alert, GCS 15, non- toxic Head: normocephalic, atraumatic Eyes: bilateral eye normal inspection, bilateral eye PERRL ENT: hearing grossly normal, normal pharynx, no angioedema, normal voice, uvula midline, moist mucus membranes Neck: full range of motion Respiratory: lungs clear, normal breath sounds, no rhonchi, no respiratory distress, no accessory muscle use, no wheezing, speaking full sentences Cardiovascular #1: regular rate, rhythm, no edema Gastrointestinal: non tender, soft, no mass, non-distended, no guarding, no rebound Musculoskeletal: back normal, digits/nails normal, gait/station normal, normal range of motion, non-tender Neurologic: alert, oriented x3, responsive, motor strength/tone normal, sensory intact Psychiatric: mood/affect normal Skin: no rash Medical Decision Making PA Attestation Dr. Cool is my supervising Physician whom patient management has been discussed with. Diagnostic Impression: Primary Impression: Vomiting Additional Impression: Cough ER Course Pt. presents to the ED c/o vomiting. Ddx considered but are not limited to gastritis, viral syndrome, food poisoning , reflux. negative Rovsing, negative obturator, negative Merritt, low suspicion for appendicitis, cholecystitis, doesn't require imaging of abdomen at this time. Vital signs: are WNL, pt. is afebrile ORDERS: none required at this time, the diagnosis is clinical ED INTERVENTIONS:. patient previously seen in ER for similar symptoms. Zofran and GI cocktail provided to patient. Patient reports feeling better following administration of medication. Patient able to tolerate PO fluids at this time. Patient does not require abx at this time; afebrile, no recent travel, no blood in stool. Return to ER if symptoms persist. Drink fluids as tolerated to prevent dehydration. advised patient on food diary. On repeat examination, patient resting complaining of acute distress nontoxic appearing, smiling and laughing. Patient saying that he is also now having cough for the past few days. Requesting with codeine. patient did not appear to cough while in the ER. Informed patient would not provided promethazine with codeine but rayne provide him with promethazine cough syrup. Return to ER if symptoms worsen. Lungs clear to auscultation, no wheezes rhonchi or rales, fever, does not require chest x-ray, low suspicion for pneumonia. reports symptoms improved on the ER. States he is feeling better. DISCHARGE Rx provided for Omeprazole Rx provided for promethazine cough syrup for cough At this time pt is stable for d/c to home. Patient is resting comfortably, in no acute distress, nontoxic appearing, talking without difficulty. Patient to take medications as instructed Will provide with patient care instructions and any necessary prescriptions. Care plan and follow-up instructions provided. Patient instructed to follow-up with primary care provider in 3 - 5 days. Patient questions asked and answered. Patient reports understanding and agreement to treatment plan.ER precautions given. Patient instructed to return to ER immediately for any new or worsening of symptoms including but not limited to increasing SOB, persistent fever, intractable vomiting. - Please note that this Emergency Department Report was dictated using [employer]icketorth[employer]/prosthetic practitioner technology software, occasionally this can lead to erroneous entry secondary to interpretation by the dictation equipment. Last Vital Signs Date Time Temp Pulse Resp B/P (MAP) Pulse Ox O2 Delivery O2 Flow Rate FiO2 07/09/18 12:38 98.0 89 22 122/74 97 Room Air 98.1 Status: improved Disposition: HOME, SELF-CARE Condition: Stable Scripts Omeprazole (OMEPRAZOLE) 40 Mg Capsule. 40 MG ORAL DAILY for 14 Days, #14 CAP Prov: Gavin Armijo 07/09/18 Promethazine Hcl (PROMETHAZINE HCL*) 6.25 Mg/5 Ml Syrup 5 ML ORAL Q8H, #120 ML 0 Refills Prov: Gavin Armijo 07/09/18 Patient Instructions: Cough, Adult, [id number], Gastritis, Adult, Nausea and Vomiting, Adult, [id number] Additional Instructions: Followup with primary care provider in 3 -5 days. Avoid spicy foods, avoid dairy foods. BRAT diet: bananas, rice, apple sauce, toast. Take medications as directed. Patient questions asked and answered. ER precautions given, patient instructed to return to ER immediately for any new or worsening of symptoms. Gavin Armijo Jul 09, 2018 13:21
[2018-07-09] MEDS ORDERED: PROMETHAZI6.25 MG/1 ORAL (13:48)
[2018-07-09] MEDS ORDERED: OMEPRAZOLE40 M1 ORAL (13:48)
[2018-07-09 14:07] VITALS: BP 122/74
== END 2018-07-09 14:10 | disposition home or self-care (01) ==
LOC: EMR 12:46
DX: R11.0 Nausea (principal); R05 Cough; J45.909 Unspecified asthma, uncomplicated
CPT/HCPCS: 99283

== ENCOUNTER 2019-04-14 22:47 | Emergency (ER) | payer OTHER ==
[~2019-04-14] VITALS: Ht 190.5 cm; Wt 95.3 kg
[~2019-04-14 22:47] MED LIST changes: +PROMETHAZI6.25 MG/1 ORAL
--- NOTE | 2019-04-14 23:22 | Emergency Room Report ---
History of Present Illness General Chief Complaint: Abdominal Pain Source: Patient Present Illness HPI This is a 23-year-old male with a history of gastritis confirmed by EGD. He presents with chief complaint of upper abdominal pain. Onset for last couple days. This is a chronic problem. He is taking omeprazole and Zantac. Pain is 9 out of 10. Has nausea but no vomiting. No diarrhea. Denies any urinary complaint. Pain radiating to the back. Similar symptom in the past. Allergies: Coded Allergies: No Known Allergies (Unverified , 12/19/17) Patient History Past Medical History: see triage record, old chart reviewed Past Surgical History: none Pertinent Family History: none Social History: Denies: smoking Immunizations: other Reviewed Nursing Documentation: PMH: Agreed; PSxH: Agreed Nursing Documentation-PMH Hx Asthma: Yes Review of Systems Eye: Denies: eye pain, blurred vision ENT: Denies: ear pain, nose congestion, throat swelling Respiratory: Denies: cough, shortness of breath Cardiovascular: Denies: chest pain, palpitations Gastrointestinal: Reports: abdominal pain, nausea; Denies: diarrhea, vomiting Musculoskeletal: Denies: back pain, joint pain Skin: Denies: rash Neurological: Denies: headache, numbness Endocrine: Denies: increased thirst, increased urine Hematologic/Lymphatic: Denies: easy bruising All Other Systems: negative except mentioned in HPI Physical Exam Vital Signs Date Time Temp Pulse Resp B/P (MAP) Pulse Ox O2 Delivery O2 Flow Rate FiO2 04/14/19 23:01 98.6 104 18 140/96 (111) 100 Room Air Vitals unremarkable Sp02 EP Interpretation: reviewed, normal General Appearance: well appearing, no apparent distress, alert Head: normocephalic, atraumatic Eyes: bilateral eye PERRL, bilateral eye EOMI ENT: hearing grossly normal, normal pharynx Neck: full range of motion, supple, no meningismus Respiratory: chest non-tender, lungs clear, normal breath sounds Cardiovascular #1: regular rate, rhythm, no murmur Gastrointestinal: normal bowel sounds, no mass, no organomegaly, no bruit, non- distended, tenderness - epiGastric Musculoskeletal: back normal, gait/station normal, normal range of motion Psychiatric: mood/affect normal Medical Decision Making Diagnostic Impression: Primary Impression: Abdominal pain Qualified Codes: R10.10 - Upper abdominal pain, unspecified ER Course Patient presents with abdominal pain. Similar to his previous episodes. This could be gastritis or cyclic vomiting or ulcers. No evidence of obstruction or acute abdomen. Pain better now. Will discharge home. Last Vital Signs Date Time Temp Pulse Resp B/P (MAP) Pulse Ox O2 Delivery O2 Flow Rate FiO2 04/14/19 23:01 98.6 104 18 140/96 (111) 100 Room Air Status: improved Disposition: HOME, SELF-CARE Condition: Stable Scripts Dicyclomine Hcl* (DICYCLOMINE HCL*) 10 Mg Capsule 10 MG ORAL TID, #30 CAP Prov: Ten Dominguez MD 04/15/19 Patient Instructions: Abdominal Pain, Adult Additional Instructions: Follow up with your doctor in 3 to 5 days. Return if worse. Ten Dominguez MD Apr 14, 2019 23:22
[2019-04-14 23:25] LABS: HEMATOCRIT 49.4 % (42.0-52.0); HEMOGLOBIN 17.4 G/DL (14.2-18.0); MEAN CORPUSCULAR VOLUME 87 FL (80-99); PLATELET COUNT 277 K/UL (150-450); RED BLOOD COUNT 5.67 M/UL (4.70-6.10); RED CELL DISTRIBUTION WIDTH 10.7 % (11.6-14.8); WHITE BLOOD COUNT 11.4 K/UL (4.8-10.8)
[2019-04-14] MEDS ORDERED: Morphine Sulfate 4mg/ml Inj (IV USE ONLY) IVP ONE (23:30)
[2019-04-14 23:34] LABS: ANION GAP 13 mmol/L (5-15); BLOOD UREA NITROGEN 16 mg/dL (7-18); CALCIUM 10.3 MG/DL (8.5-10.1); CARBON DIOXIDE 25 MMOL/L (21-32); CHLORIDE 104 MMOL/L (98-107); CREATININE 1.2 MG/DL (0.55-1.30); POTASSIUM 3.7 MMOL/L (3.5-5.1); SODIUM 142 MMOL/L (136-145)
[2019-04-14 23:39] LABS: ALANINE AMINOTRANSFERASE 37 U/L (12-78); ALBUMIN 5.1 G/DL (3.4-5.0); ALBUMIN/GLOBULIN RATIO 1.4 (1.0-2.7); ALKALINE PHOSPHATASE 42 U/L (46-116); ASPARTATE AMINO TRANSFERASE 30 U/L (15-37); BILIRUBIN,TOTAL 0.6 MG/DL (0.2-1.0)
[2019-04-14 23:54] LABS: APPEARANCE,URINE CLEAR; BILIRUBIN, URINE NEGATIVE (NEGATIVE); GLUCOSE, URINE (UA) NEGATIVE (NEGATIVE); KETONES,URINE 4+ (NEGATIVE); LEUKOCYTE ESTERASE ,URINE 1+ (NEGATIVE); NITRITE,URINE NEGATIVE (NEGATIVE); PH,URINE 6 (4.5-8.0); PROTEIN,URINE 3+ (NEGATIVE); UROBILINOGEN,URINE 1 MG/DL (0.0-1.0)
[2019-04-14 23:58] VITALS: BP 140/96
[2019-04-15 00:03] LABS: COLOR,URINE YELLOW
[2019-04-15] MEDS ORDERED: DICYCLOMINE HCL10 MG ORAL (00:18)
[2019-04-15 00:34] VITALS: BP 140/96
== END 2019-04-15 00:35 | disposition home or self-care (01) ==
LOC: EMR 23:52
DX: R10.10 Upper abdominal pain, unspecified (principal)
CPT/HCPCS: 36415; 80053; 80307; 81003; 83690; 85025; 96361; 96374; 96375; 99284; J2270; J2405; S0028